=== PATIENT | female | born 1945 | race Hispanic/Latino ===

== ENCOUNTER 2018-08-23 03:08 | Inpatient (IN) | payer MEDICARE ==
--- NOTE | 2018-08-23 04:08 | Emergency Department Report ---
HPI - General Chief Complaint: Dyspnea/Respdistress Time Seen by Provider: 08/23/18 03:47 - HPI HPI: Room 17 The patient is a 73-year-old female presenting with a chief complaint of shortness of breath and chest tightness. The patient states she was sent to the residential facility but has been without her oxygen for the past 2-3 days. Patient states she's had intermittent shortness of breath associated with chest tightness and nausea without vomiting and diaphoresis. The patient states she awakened this evening gasping for air and her roommate called 911. Patient admits to occasional cough that is nonproductive. Patient denies history of fe tatum. Patient currently gets her chest tightness and score of 4/10. Of note the patient is also relatively low after being diagnosed with PVCs approximately 2-3 months ago. 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 Chronic pain - Surgical History Hx Breast Surgery: Yes (R mastectomy 2003, cancer) Additional Surgical History: Hysterectomy, Right foot surgery - Family History Family history: no significant - Social History Smoking Status: Former Smoker (none since 2002) Substance Use Type: None - Medications Home Medications: Home Medications Medication Instructions Recorded Confirmed Last Taken Type Buspirone HCl [busPIRone] 15 mg PO TID 09/16/14 08/18/18 02/18/16 History Levothyroxine [Synthroid] 100 mcg PO DAILY 09/16/14 08/18/18 02/20/16 08:00 History Tizanidine HCl 4 mg PO Q8H PRN 02/20/16 08/18/18 02/20/16 08:00 History Gabapentin [Neurontin] 400 mg PO TID 08/18/18 08/18/18 Unknown History Metformin HCl [Glucophage] 1,000 mg PO BIDWM 08/18/18 08/18/18 Unknown History Oxybutynin Xl [Ditropan Xl] 5 mg PO QDAY 08/18/18 08/18/18 Unknown History Venlafaxine Xr [Effexor Xr] 225 mg PO QDAY 08/18/18 08/18/18 Unknown History ED Review of Systems ROS: Stated complaint: SOB Other details as noted in HPI Constitutional: denies: fever Eyes: denies: eye pain ENT: denies: throat pain Respiratory: shortness of breath Cardiovascular: chest pain (tightness) Endocrine: no symptoms reported Gastrointestinal: nausea Genitourinary: denies: dysuria Musculoskeletal: back pain (chronic) Neurological: denies: headache Physical Exam - Physical Exam Vital Signs: Vital Signs 08/23/18 08/23/18 08/23/18 03:36 03:46 03:47 Temperature 97.9 F 97.9 F Pulse Rate 88 88 Respiratory 18 18 18 Rate Blood Pressure 159/67 Blood Pressure 136/73 [Left] O2 Sat by Pulse 95 96 Oximetry Physical Exam: GENERAL: The patient is well-developed well-nourished female lying on stretcher not appearing to be in acute distress. [] HEENT: Normocephalic. Atraumatic. Extraocular motions are intact. Patient has moist mucous membranes. NECK: Supple. Trachea midline CHEST/LUNGS: Clear to auscultation. There is no respiratory distress noted. HEART/CARDIOVASCULAR: Regular. There is no tachycardia. There is no gallop rub or murmur. ABDOMEN: Abdomen is soft, nontender. Patient has normal bowel sounds. There is no abdominal distention. SKIN: There is no rash. There is no diaphoresis. NEURO: The patient is awake, alert, and oriented. The patient is cooperative. The patient has normal speech MUSCULOSKELETAL: There is no evidence of acute injury. ED Course Vital Signs 08/23/18 08/23/18 08/23/18 03:36 03:46 03:47 Temperature 97.9 F 97.9 F Pulse Rate 88 88 Respiratory 18 18 18 Rate Blood Pressure 159/67 Blood Pressure 136/73 [Left] O2 Sat by Pulse 95 96 Oximetry ED Medical Decision Making - Lab Data Result diagrams: 08/23/18 04:37 08/23/18 04:37 Laboratory Tests 08/23/18 08/23/18 08/23/18 04:37 04:37 04:37 WBC 3.6 L RBC 3.68 Hgb 11.2 Hct 33.8 MCV 92 MCH 31 MCHC 33 RDW 18.9 H Plt Count 149 Lymph % (Auto) 15.0 [place] % (Auto) 9.8 H Eos % (Auto) 2.7 Baso % (Auto) 0.7 Lymph # 0.5 L [place] # 0.4 Eos # 0.1 Baso # 0.0 Seg Neutrophils % 71.8 H Seg Neutrophils # 2.6 PT 14.7 INR 1.08 APTT 31.3 Sodium 141 Potassium 3.9 Chloride 100.0 Carbon Dioxide 31 H Anion Gap 14 BUN 10 Creatinine 0.6 L Estimated GFR > 60 BUN/Creatinine Ratio 17 Glucose 237 H Calcium 8.7 Total Creatine Kinase 48 CK-MB (CK-2) 1.4 CK-MB (CK-2) Rel Index 2.9 Troponin T NT-Pro-B Natriuret Pep 08/23/18 04:37 WBC RBC Hgb Hct MCV MCH MCHC RDW Plt Count Lymph % (Auto) [place] % (Auto) Eos % (Auto) Baso % (Auto) Lymph # [place] # Eos # Baso # Seg Neutrophils % Seg Neutrophils # PT INR APTT Sodium Potassium Chloride Carbon Dioxide Anion Gap BUN Creatinine Estimated GFR BUN/Creatinine Ratio Glucose Calcium Total Creatine Kinase CK-MB (CK-2) CK-MB (CK-2) Rel Index Troponin T < 0.010 NT-Pro-B Natriuret Pep 66.83 - EKG Data -: EKG Interpreted by Me EKG shows normal: sinus rhythm Rate: normal - EKG Data When compared to previous EKG there are: previous EKG unavailable Interpretation: nonspecific ST-T wave maria esther (T-wave inversions in leads 3 and aVF), other (PVC) - Radiology Data Radiology results: report reviewed (chest x-ray), image reviewed (chest x-ray) interpreted by me: Chest x-ray- no pneumothorax. Haziness in the right costophrenic angle possible pleural effusion. Left lower lobe atelectasis Chest x-ray (read by radiologist)-the heart size is normal. There are bilateral pulmonary nodules which roughly correspond to lesion seen on prior CT. There are no infiltrates, effusions or pneumothoraces. - Differential Diagnosis COPD exacerbation, ACS, pericarditis, GERD Critical care attestation.: If time is entered above; I have spent that time in minutes in the direct care of this critically ill patient, excluding procedure time. ED Disposition Clinical Impression: Chest tightness, Shortness of breath Disposition: OP ADMIT IP TO THIS HOSP Is pt being admited?: Yes Does the pt Need Aspirin: No Condition: Fair Time of Disposition: 05:56 (hospitalist notified (Dr. Naima Davis))
[2018-08-23] MEDS ORDERED: NITRO-BID 2% TP ONE (04:11)
[2018-08-23] MEDS ORDERED: SUBLIMAZE IV ONE (04:11)
[2018-08-23] MEDS ORDERED: ZOFRAN IV ONE (04:11)
[2018-08-23 04:47] LABS: Basophils % (Auto) 0.7 % (0.0-1.8); Eosinophils # (Auto) 0.1 K/mm3 (0.0-0.4); Eosinophils % (Auto) 2.7 % (0.0-4.3); Hematocrit 33.8 % (30.3-42.9); Hemoglobin 11.2 gm/dl (10.1-14.3); Lymphocytes # (Auto) 0.5 K/mm3 (1.2-5.4); Mean Corpuscular HGB Conc 33 % (30-34); Mean Corpuscular Volume 92 fl (79-97); Monocytes # (Auto) 0.4 K/mm3 (0.0-0.8); Monocytes % (Auto) 9.8 % (0.0-7.3); Platelet Count 149 K/mm3 (140-440); Red Blood Count 3.68 M/mm3 (3.65-5.03); Red Cell Distribution Width 18.9 % (13.2-15.2)
--- NOTE | 2018-08-23 04:47 | XRay Report ---
PROCEDURE: XR CHEST 1V AP TECHNIQUE: Chest radiograph single view. HISTORY: chest tightness, shortness of breath COMPARISONS: CT 12/21/2015 . FINDINGS: Heart: Normal. Mediastinum/Vessels: Normal. Lungs/Pleural space: There are bilateral pulmonary nodules which roughly correspond to lesions seen on prior CT. There are no infiltrates, effusions or pneumothoraces.. Bony thorax: No acute osseous abnormality. Life support devices: None. IMPRESSION: The heart size is normal.. There are bilateral pulmonary nodules which roughly correspond to lesions seen on prior CT. There are no infiltrates, effusions or pneumothoraces.. This document is electronically signed by Dillan Monterroso MD., August 23 2018 04:44:55 AM ET
[2018-08-23 04:57] LABS: INR 1.08 (0.87-1.13)
[2018-08-23 04:58] LABS: Partial Thromboplastin Time 31.3 Sec. (24.2-36.6)
[2018-08-23 05:20] LABS: Creatine Kinase MB 1.4 ng/mL (0.0-4.0)
[2018-08-23 05:21] LABS: BUN/Creatinine Ratio 17; Blood Urea Nitrogen 10 mg/dL (7-17); Calcium 8.7 mg/dL (8.4-10.2); Hemolysis Index 10
[2018-08-23] MEDS ORDERED: ZOFRAN IV PRN (05:33)
[2018-08-23] MEDS ORDERED: SODIUM CHLORIDE FLUSH SYRINGE 10 ML IV PRN (05:33)
[2018-08-23] MEDS ORDERED: MORPHINE IV PRN (05:33)
[2018-08-23] MEDS ORDERED: TYLENOL PO PRN (05:33)
[2018-08-23] MEDS ORDERED: D50W (25GM) Syringe IV PRN (05:33)
--- NOTE | 2018-08-23 05:42 | History and Physical Report ---
History of Present Illness Date of examination: 08/23/18 History of present illness: 73-year-old woman and a history of diabetes, COPD on home oxygen, hypothyroidism, GERD, history of metastatic breast cancer(lungs, liver, bones), chronic pain comes emergency room with complaints of chest tightness that started today. Tightness is located in the epigastric area, intermittently, unable to say how long it lasts for, intensity 5/10, no radiation, took a 30 milligram morphine sulfate at home which helped with the pain. Admits to shortness of breath, no nausea vomiting, diaphoresis or palpitation Review of systems Constitutional: no weight loss, chills, fever Ears, eyes, nose, mouth and throat: no nasal congestion, no nasal discharge, no sinus pressure, no vision change, no red eye. Neck: No neck pain or rigidity. Cardiovascular: no palpitations Respiratory: no cough, +shortness of breath Gastrointestinal: no hematochezia, abdominal pain Genitourinary : no frequency , no hematuria Musculoskeletal: no joint swelling or muscle ache Integumentary: no rash, no pruritis Neurological: no parathesias, no focal weakness Endocrine: no cold or heat intolerance, no polyuria or polydipsia Hematologic/Lymphatic: no easy bruising, no easy bleeding, no gland swelling Allergic/Immunologic: no urticaria, no angioedema. PAST MEDICAL HISTORY: diabetes, COPD on home oxygen, hypothyroidism, GERD, history of metastatic breast cancer, chronic pain PAST SURGICAL HISTORY: Hip, right foot, hysterectomy SOCIAL HISTORY: Denies alcohol, drugs, tobacco FAMILY HISTORY: Hypertension Medications and Allergies Allergies Allergy/AdvReac Type Severity Reaction Status Date / Time Penicillins Allergy Hives Verified 09/16/14 21:38 pregabalin [From Lyrica] Allergy Itching Verified 09/16/14 21:39 MOLD/MILDEW Allergy Swelling Uncoded 10/10/14 13:09 Home Medications Medication Instructions Recorded Confirmed Last Taken Type Buspirone HCl [busPIRone] 15 mg PO TID 09/16/14 08/18/18 02/18/16 History Levothyroxine [Synthroid] 100 mcg PO DAILY 09/16/14 08/18/18 02/20/16 08:00 History Tizanidine HCl 4 mg PO Q8H PRN 02/20/16 08/18/18 02/20/16 08:00 History Gabapentin [Neurontin] 400 mg PO TID 08/18/18 08/18/18 Unknown History Metformin HCl [Glucophage] 1,000 mg PO BIDWM 08/18/18 08/18/18 Unknown History Oxybutynin Xl [Ditropan Xl] 5 mg PO QDAY 08/18/18 08/18/18 Unknown History Venlafaxine Xr [Effexor Xr] 225 mg PO QDAY 08/18/18 08/18/18 Unknown History Exam - Physical Exam Narrative exam: General Apperance: The patient lying in bed, breathing comfortable HEENT: Normocephalic, atraumatic. Pupils equally round and reactive to light, EOMI, no sclericterus or JVD or thyromegaly or nodule. , no carotid bruit, mucous membranes moist, no exudate or erythema Heart: S1-S2, regular is rhythm Lungs: Clear to auscultation bilaterally, breathing comfortable Abdomen: Positive bowel sounds, soft, nontender, nondistended, no organomegaly Extremities: No edema cyanosis clubbing Skin: no rash, nodule, warm and dry Neuro: cranial nerves 2-12 intact, speech is fluent, motor/sensory intact - Constitutional Vitals: Temp Pulse Resp BP Pulse Ox 97.9 F 88 18 136/73 96 08/23/18 03:46 08/23/18 03:46 08/23/18 03:47 08/23/18 03:46 08/23/18 03:47 Results - Labs CBC & Chem 7: 08/23/18 04:37 08/23/18 04:37 Labs: Abnormal lab results 08/23/18 08/23/18 Range/Units 04:37 04:37 WBC 3.6 L (4.5-11.0) K/mm3 RDW 18.9 H (13.2-15.2) % [place] % (Auto) 9.8 H (0.0-7.3) % Lymph # 0.5 L (1.2-5.4) K/mm3 Seg Neutrophils % 71.8 H (40.0-70.0) % Carbon Dioxide 31 H (22-30) mmol/L Creatinine 0.6 L (0.7-1.2) mg/dL Glucose 237 H (65-100) mg/dL - Imaging and Cardiology EKG: image reviewed Chest x-ray: image reviewed Assessment and Plan Assessment Chest pain diabetes COPD on home oxygen hypothyroidism GERD history of metastatic breast cancer chronic pain Plan Admit to medicine Check cardiac enzymes, stress test Check fingersticks, initiate insulin sliding scale IV morphine, DVT prophylaxis f/u med rec
[2018-08-23 08:15] LABS: Creatine Kinase MB 1.7 ng/mL (0.0-4.0)
[2018-08-23] MEDS ORDERED: HumaLOG SUB-Q ONE (09:03)
[2018-08-23] MEDS: HumaLOG SUB-Q SCH ×3 (09:09→17:58)
[2018-08-23] MEDS ORDERED: LOVENOX SUB-Q SCH (10:00)
[2018-08-23] MEDS: SODIUM CHLORIDE FLUSH SYRINGE 10 ML IV SCH (10:07)
[2018-08-23] MEDS ORDERED: BABY ASPIRIN ONE (10:09)
[2018-08-23] MEDS: BABY ASPIRIN PO SCH (10:09)
[2018-08-23] MEDS ORDERED: LOVENOX SUB-Q ONE (10:10)
[2018-08-23] MEDS ORDERED: ZANAFLEX PO PRN (12:29)
[2018-08-23] MEDS ORDERED: MORPHINE SULFATE 60 MG PO SCH (12:30)
[2018-08-23] MEDS ORDERED: NON-FORMULARY (Metformin Hcl [Glucophage] 1,000 MG) PO SCH (12:30)
[2018-08-23] MEDS ORDERED: DILAUDID PO PRN (12:37)
[2018-08-23] MEDS: NEURONTIN PO SCH ×2 (13:33→20:58)
[2018-08-23] MEDS: MS CONTIN ER PO SCH ×2 (13:34→13:49)
[2018-08-23] MEDS ORDERED: NON-FORMULARY (Buspirone Hcl [Buspirone] 15 MG) PO SCH (14:00)
[2018-08-23] MEDS ORDERED: NEURONTIN PO SCH (14:00)
--- NOTE | 2018-08-23 16:11 | Event Note ---
Date: 08/23/18 The patient's self reported that she took her own medications while she was in the room. She took 1 mg of Ativan, and 30 mg of immediate release morphine. She states that she was in too much pain and having to severe headache and could not wait for the nurse administer meds to her. I personally spoke to the charge nurse [place], informed her of what happened. She sequentially to the patient's room educated the patient and confiscated any medications in the room. I also counseled the patient and explained that this is not safe to take her own medications while in hospital Preventative health counseling was performed greater than 18 minutes was spent
[2018-08-23] MEDS: GLUCOPHAGE PO SCH (17:58)
[2018-08-23] MEDS: BUSPAR PO SCH ×2 (17:58→20:58)
[2018-08-23] MEDS: XARELTO PO SCH (20:58)
[2018-08-24] MEDS: HumaLOG SUB-Q SCH ×5 (00:02→22:31)
[2018-08-24] MEDS: SODIUM CHLORIDE FLUSH SYRINGE 10 ML IV SCH ×3 (00:02→21:12)
[2018-08-24] MEDS: SYNTHROID PO SCH (06:18)
[2018-08-24] MEDS: BUSPAR PO SCH ×3 (08:00→21:10)
[2018-08-24] MEDS: NEURONTIN PO SCH ×3 (08:00→21:10)
[2018-08-24] MEDS: GLUCOPHAGE PO SCH ×2 (08:00→18:58)
[2018-08-24] MEDS ORDERED: LEXISCAN IV ONE ×2 (10:02→11:00)
[2018-08-24] MEDS ORDERED: ZOFRAN ONE (10:09)
[2018-08-24] MEDS: XARELTO PO SCH (13:53)
[2018-08-24] MEDS: HCTZ PO SCH (13:53)
[2018-08-24] MEDS: EFFEXOR XR PO SCH (13:54)
[2018-08-24] MEDS: DITROPAN XL PO SCH (13:58)
[2018-08-24] MEDS: MS CONTIN ER PO SCH ×3 (13:58→21:11)
[2018-08-24] MEDS: BABY ASPIRIN PO SCH (14:00)
--- NOTE | 2018-08-24 14:03 | Progress Note ---
Assessment and Plan Assessment and plan: Chest pain Stress test is negative GERD with Heartburn Patient states that he was on ranitidine at home. Start Pepcid chronic resp failure on home Oxygen but ran out mental health case manager consult Diabetes mellitus type 2 Fingerstick before meals and at bedtime Hypertension Monitor BP Hypothyroidism Continue meds Breast cancer with metastases . Failure to thrive parking lot manager working on placement. History Interval history: Chest pain Heartburn asking for placement Hospitalist Physical - Physical exam Narrative exam: Gen: Not in acute distress, obese HEENT: Normocephalic, atraumatic Neck: supple, no JVD Heart: S1 and S2 reg, no murmurs, rubs or gallop Lungs: Clear, no crackles Abd: soft, non tender, non distended, normal BS Ext: No edema, no clubbing, no cyanosis, Neuro: AAO x 3, no focal signs, moves all ext Psych:Normal mood - Constitutional Vitals: Temp Pulse Resp BP Pulse Ox 98.3 F 78 18 152/89 96 08/24/18 07:32 08/24/18 07:32 08/24/18 07:32 08/24/18 10:11 08/24/18 07:32 Results - Labs CBC & Chem 7: 08/23/18 04:37 08/23/18 04:37 Labs: Laboratory Last Values WBC 3.6 K/mm3 (4.5-11.0) L 08/23/18 04:37 RBC 3.68 M/mm3 (3.65-5.03) 08/23/18 04:37 Hgb 11.2 gm/dl (10.1-14.3) 08/23/18 04:37 Hct 33.8 % (30.3-42.9) 08/23/18 04:37 MCV 92 fl (79-97) 08/23/18 04:37 MCH 31 pg (28-32) 08/23/18 04:37 MCHC 33 % (30-34) 08/23/18 04:37 RDW 18.9 % (13.2-15.2) H 08/23/18 04:37 Plt Count 149 K/mm3 (140-440) 08/23/18 04:37 Lymph % (Auto) 15.0 % (13.4-35.0) 08/23/18 04:37 [place] % (Auto) 9.8 % (0.0-7.3) H 08/23/18 04:37 Eos % (Auto) 2.7 % (0.0-4.3) 08/23/18 04:37 Baso % (Auto) 0.7 % (0.0-1.8) 08/23/18 04:37 Lymph # 0.5 K/mm3 (1.2-5.4) L 08/23/18 04:37 [place] # 0.4 K/mm3 (0.0-0.8) 08/23/18 04:37 Eos # 0.1 K/mm3 (0.0-0.4) 08/23/18 04:37 Baso # 0.0 K/mm3 (0.0-0.1) 08/23/18 04:37 Seg Neutrophils % 71.8 % (40.0-70.0) H 08/23/18 04:37 Seg Neutrophils # 2.6 K/mm3 (1.8-7.7) 08/23/18 04:37 PT 14.7 Sec. (12.2-14.9) 08/23/18 04:37 INR 1.08 (0.87-1.13) 08/23/18 04:37 APTT 31.3 Sec. (24.2-36.6) 08/23/18 04:37 Sodium 141 mmol/L (137-145) 08/23/18 04:37 Potassium 3.9 mmol/L (3.6-5.0) 08/23/18 04:37 Chloride 100.0 mmol/L (98-107) 08/23/18 04:37 Carbon Dioxide 31 mmol/L (22-30) H 08/23/18 04:37 Anion Gap 14 mmol/L 08/23/18 04:37 BUN 10 mg/dL (7-17) 08/23/18 04:37 Creatinine 0.6 mg/dL (0.7-1.2) L 08/23/18 04:37 Estimated GFR > 60 ml/min 08/23/18 04:37 BUN/Creatinine Ratio 17 % 08/23/18 04:37 Glucose 237 mg/dL (65-100) H 08/23/18 04:37 POC Glucose 270 (70-105) H 08/24/18 12:54 Calcium 8.7 mg/dL (8.4-10.2) 08/23/18 04:37 Total Creatine Kinase 53 units/L (30-135) 08/23/18 07:37 CK-MB (CK-2) 1.7 ng/mL (0.0-4.0) 08/23/18 07:37 CK-MB (CK-2) Rel Index 3.2 (0-4) 08/23/18 07:37 Troponin T < 0.010 ng/mL (0.00-0.029) 08/23/18 14:58 NT-Pro-B Natriuret Pep 66.83 pg/mL (0-900) 08/23/18 04:37 TSH 5.180 mlU/mL (0.270-4.200) H 08/23/18 14:58 Free T4 1.21 ng/dL (0.76-1.46) 08/23/18 15:12 Thyroxine (T4) 7.6 ug/dL (4.0-12.0) 08/23/18 15:13 Active Medications - Current Medications Current Medications: Generic Name Dose Route Start Last Admin Trade Name Freq PRN Reason Stop Dose Admin Acetaminophen 650 mg 08/23/18 05:33 08/23/18 13:52 Tylenol PO 650 mg Q4H PRN Administration Pain MILD(1-3)/Fever >100.5/CATHERINE Aspirin 81 mg 08/23/18 10:00 08/23/18 10:09 Baby Aspirin PO 81 mg QDAY [facility] Administration Buspirone HCl 15 mg 08/23/18 14:30 08/24/18 08:00 Buspar PO Not Given TID [facility] Dextrose 50 ml 08/23/18 05:33 D50w (25gm) Syringe IV PRN PRN Hypoglycemia Gabapentin 600 mg 08/23/18 14:00 08/24/18 08:00 Neurontin PO Not Given TID [facility] Hydrochlorothiazide 25 mg 08/24/18 10:00 Hctz PO QDAY [facility] Hydromorphone HCl 4 mg 08/23/18 12:37 Dilaudid PO Q6H PRN Pain , Severe (7-10) Insulin Human Lispro 0 unit 08/23/18 07:30 08/24/18 08:16 Humalog SUB-Q Not Given ACHS [facility] Protocol Levothyroxine Sodium 100 mcg 08/24/18 06:00 08/24/18 06:18 Synthroid PO Not Given 0600 [facility] Lorazepam 1 mg 08/23/18 12:29 Ativan PO BID PRN Anxiety Metformin HCl 1,000 mg 08/23/18 17:00 08/24/18 08:00 Glucophage PO Not Given BIDDIAB [facility] Morphine Sulfate 60 mg 08/23/18 22:00 08/24/18 00:00 Ms Contin Er PO 60 mg Q12HR [facility] Administration Ondansetron HCl 4 mg 08/23/18 05:33 08/24/18 10:11 Zofran IV 4 mg Q8H PRN Administration Nausea And Vomiting Oxybutynin Chloride 5 mg 08/24/18 10:00 Ditropan Xl PO QDAY [facility] Rivaroxaban 15 mg 08/23/18 20:00 08/23/18 20:58 Xarelto PO 15 mg DAILY [facility] Administration Protocol Sodium Chloride 10 ml 08/23/18 10:00 08/24/18 00:02 Sodium Chloride Flush Syringe 10 Ml IV 10 ml BID [facility] Administration Sodium Chloride 10 ml 08/23/18 05:33 Sodium Chloride Flush Syringe 10 Ml IV PRN PRN LINE FLUSH Tizanidine HCl 4 mg 08/23/18 12:29 Zanaflex PO Q8H PRN Muscle Spasm Venlafaxine HCl 225 mg 08/24/18 10:00 Effexor Xr PO QDAY [facility]
--- NOTE | 2018-08-24 14:49 | Treadmill Report ---
THALLIUM STRESS TEST LEFT VENTRICLE: Left ventricular chamber size is within normal spread. Perfusion study demonstrates homogeneous uptake of the tracer in all segments, no significant defects identified. Gated analysis demonstrates normal left ventricular systolic function, ejection fraction 67%. CONCLUSION: Normal myocardial perfusion study. JOB# [id number] CA/NTS
[2018-08-24] MEDS: PEPCID PO SCH ×2 (18:59→21:11)
[2018-08-24] MEDS ORDERED: CAPECITABINE 1500 MG PO SCH (22:00)
[2018-08-24] MEDS ORDERED: ALUM-MAG HYDROX-SIMETH 200-200-20MG/5ML PO PRN (22:23)
[2018-08-24] MEDS: ATIVAN PO PRN (23:56)
[2018-08-25] MEDS: SYNTHROID PO SCH (06:38)
[2018-08-25] MEDS: HumaLOG SUB-Q SCH ×3 (08:28→17:22)
[2018-08-25] MEDS: EFFEXOR XR PO SCH (09:28)
[2018-08-25] MEDS: GLUCOPHAGE PO SCH ×2 (09:28→17:22)
[2018-08-25] MEDS: PEPCID PO SCH ×2 (09:28→23:08)
[2018-08-25] MEDS: MS CONTIN ER PO SCH ×2 (09:29→23:09)
[2018-08-25] MEDS: BABY ASPIRIN PO SCH (09:29)
[2018-08-25] MEDS: BUSPAR PO SCH ×2 (09:29→13:31)
[2018-08-25] MEDS: HCTZ PO SCH (09:29)
[2018-08-25] MEDS: DITROPAN XL PO SCH (09:29)
[2018-08-25] MEDS: NEURONTIN PO SCH ×3 (09:29→20:00)
[2018-08-25] MEDS: XARELTO PO SCH (09:29)
[2018-08-25] MEDS: SODIUM CHLORIDE FLUSH SYRINGE 10 ML IV SCH ×2 (09:30→23:12)
--- NOTE | 2018-08-25 18:55 | Progress Note ---
Assessment and Plan Assessment and plan: Chest pain Stress test is negative GERD with Heartburn Patient states that he was on ranitidine at home. Start Pepcid chronic resp failure on home Oxygen but ran out cyanide case hardener consult Diabetes mellitus type 2 Fingerstick before meals and at bedtime Hypertension Monitor BP Hypothyroidism Continue meds Breast cancer with metastases . Failure to thrive surgical territory manager working on placement. patient medically stable for discharge History Interval history: Chest pain Heartburn asking for placement Hospitalist Physical - Physical exam Narrative exam: Gen: Not in acute distress, obese HEENT: Normocephalic, atraumatic Neck: supple, no JVD Heart: S1 and S2 reg, no murmurs, rubs or gallop Lungs: Clear, no crackles Abd: soft, non tender, non distended, normal BS Ext: No edema, no clubbing, no cyanosis, Neuro: AAO x 3, no focal signs, moves all ext Psych:Normal mood - Constitutional Vitals: Temp Pulse Resp BP Pulse Ox 97.9 F 82 18 135/79 94 08/25/18 12:53 08/25/18 12:53 08/25/18 12:53 08/25/18 12:53 08/25/18 12:53 Results - Labs CBC & Chem 7: 08/23/18 04:37 08/23/18 04:37 Labs: Laboratory Last Values WBC 3.6 K/mm3 (4.5-11.0) L 08/23/18 04:37 RBC 3.68 M/mm3 (3.65-5.03) 08/23/18 04:37 Hgb 11.2 gm/dl (10.1-14.3) 08/23/18 04:37 Hct 33.8 % (30.3-42.9) 08/23/18 04:37 MCV 92 fl (79-97) 08/23/18 04:37 MCH 31 pg (28-32) 08/23/18 04:37 MCHC 33 % (30-34) 08/23/18 04:37 RDW 18.9 % (13.2-15.2) H 08/23/18 04:37 Plt Count 149 K/mm3 (140-440) 08/23/18 04:37 Lymph % (Auto) 15.0 % (13.4-35.0) 08/23/18 04:37 [place] % (Auto) 9.8 % (0.0-7.3) H 08/23/18 04:37 Eos % (Auto) 2.7 % (0.0-4.3) 08/23/18 04:37 Baso % (Auto) 0.7 % (0.0-1.8) 08/23/18 04:37 Lymph # 0.5 K/mm3 (1.2-5.4) L 08/23/18 04:37 [place] # 0.4 K/mm3 (0.0-0.8) 08/23/18 04:37 Eos # 0.1 K/mm3 (0.0-0.4) 08/23/18 04:37 Baso # 0.0 K/mm3 (0.0-0.1) 08/23/18 04:37 Seg Neutrophils % 71.8 % (40.0-70.0) H 08/23/18 04:37 Seg Neutrophils # 2.6 K/mm3 (1.8-7.7) 08/23/18 04:37 PT 14.7 Sec. (12.2-14.9) 08/23/18 04:37 INR 1.08 (0.87-1.13) 08/23/18 04:37 APTT 31.3 Sec. (24.2-36.6) 08/23/18 04:37 Sodium 141 mmol/L (137-145) 08/23/18 04:37 Potassium 3.9 mmol/L (3.6-5.0) 08/23/18 04:37 Chloride 100.0 mmol/L (98-107) 08/23/18 04:37 Carbon Dioxide 31 mmol/L (22-30) H 08/23/18 04:37 Anion Gap 14 mmol/L 08/23/18 04:37 BUN 10 mg/dL (7-17) 08/23/18 04:37 Creatinine 0.6 mg/dL (0.7-1.2) L 08/23/18 04:37 Estimated GFR > 60 ml/min 08/23/18 04:37 BUN/Creatinine Ratio 17 % 08/23/18 04:37 Glucose 237 mg/dL (65-100) H 08/23/18 04:37 POC Glucose 162 (70-105) H 08/25/18 17:09 Calcium 8.7 mg/dL (8.4-10.2) 08/23/18 04:37 Total Creatine Kinase 53 units/L (30-135) 08/23/18 07:37 CK-MB (CK-2) 1.7 ng/mL (0.0-4.0) 08/23/18 07:37 CK-MB (CK-2) Rel Index 3.2 (0-4) 08/23/18 07:37 Troponin T < 0.010 ng/mL (0.00-0.029) 08/23/18 14:58 NT-Pro-B Natriuret Pep 66.83 pg/mL (0-900) 08/23/18 04:37 TSH 5.180 mlU/mL (0.270-4.200) H 08/23/18 14:58 Free T4 1.21 ng/dL (0.76-1.46) 08/23/18 15:12 Thyroxine (T4) 7.6 ug/dL (4.0-12.0) 08/23/18 15:13 Active Medications - Current Medications Current Medications: Generic Name Dose Route Start Last Admin Trade Name Freq PRN Reason Stop Dose Admin Acetaminophen 650 mg 08/23/18 05:33 08/23/18 13:52 Tylenol PO 650 mg Q4H PRN Administration Pain MILD(1-3)/Fever >100.5/CATHERINE Al Hydrox/Mg Hydrox/Simethicone 30 ml 08/24/18 22:23 08/24/18 23:56 Alum-Mag Hydrox-Simeth [id number]/5ml PO 30 ml Q4H PRN Administration Indigestion Aspirin 81 mg 08/23/18 10:00 08/25/18 09:29 Baby Aspirin PO 81 mg QDAY [facility] Administration Buspirone HCl 15 mg 08/23/18 14:30 08/25/18 13:31 Buspar PO 15 mg TID ZAHIRA Administration Dextrose 50 ml 08/23/18 05:33 D50w (25gm) Syringe IV PRN PRN Hypoglycemia Famotidine 20 mg 08/24/18 15:00 08/25/18 09:28 Pepcid PO 20 mg BID [facility]AHIRA Administration Gabapentin 600 mg 08/23/18 14:00 08/25/18 15:29 Neurontin PO 600 mg TID [facility]AHIRA Administration Hydrochlorothiazide 25 mg 08/24/18 10:00 08/25/18 09:29 Hctz PO 25 mg QDAY [facility] Administration Hydromorphone HCl 4 mg 08/23/18 12:37 Dilaudid PO Q6H PRN Pain , Severe (7-10) Insulin Human Lispro 0 unit 08/23/18 07:30 08/25/18 17:22 Humalog SUB-Q Not Given ACHS [facility] Protocol Levothyroxine Sodium 100 mcg 08/24/18 06:00 08/25/18 06:38 Synthroid PO 100 mcg 0600 [facility] Administration Lorazepam 1 mg 08/23/18 12:29 08/24/18 23:56 Ativan PO 1 mg BID PRN Administration Anxiety Metformin HCl 1,000 mg 08/23/18 17:00 08/25/18 17:22 Glucophage PO 1,000 mg BIDDIAB [facility] Administration Miscellaneous Medication 1,500 mg 08/24/18 22:00 Capecitabine [Xeloda] PO BID [facility] Morphine Sulfate 60 mg 08/23/18 22:00 08/25/18 09:29 Ms Contin Er PO 60 mg Q12HR [facility] Administration Ondansetron HCl 4 mg 08/23/18 05:33 08/24/18 10:11 Zofran IV 4 mg Q8H PRN Administration Nausea And Vomiting Oxybutynin Chloride 5 mg 08/24/18 10:00 08/25/18 09:29 Ditropan Xl PO 5 mg QDAY [facility] Administration Rivaroxaban 15 mg 08/23/18 20:00 08/25/18 09:29 Xarelto PO 15 mg DAILY [facility] Administration Protocol Sodium Chloride 10 ml 08/23/18 10:00 08/25/18 09:30 Sodium Chloride Flush Syringe 10 Ml IV 10 ml BID [facility] Administration Sodium Chloride 10 ml 08/23/18 05:33 Sodium Chloride Flush Syringe 10 Ml IV PRN PRN LINE FLUSH Tizanidine HCl 4 mg 08/23/18 12:29 08/24/18 13:58 Zanaflex PO 4 mg Q8H PRN Administration Muscle Spasm Venlafaxine HCl 225 mg 08/24/18 10:00 08/25/18 09:28 Effexor Xr PO 225 mg QDAY [facility] Administration
[2018-08-25] MEDS: ATIVAN PO PRN (23:08)
[2018-08-26] MEDS: HumaLOG SUB-Q SCH ×4 (05:29→16:54)
[2018-08-26] MEDS: BUSPAR PO SCH ×3 (06:03→13:08)
[2018-08-26] MEDS: SYNTHROID PO SCH (06:28)
[2018-08-26] MEDS: GLUCOPHAGE PO SCH ×2 (07:34→16:55)
[2018-08-26] MEDS: NEURONTIN PO SCH ×2 (07:36→13:08)
[2018-08-26] MEDS: BABY ASPIRIN PO SCH (09:04)
[2018-08-26] MEDS: DITROPAN XL PO SCH (09:04)
[2018-08-26] MEDS: MS CONTIN ER PO SCH (09:05)
[2018-08-26] MEDS: EFFEXOR XR PO SCH (09:06)
[2018-08-26] MEDS: HCTZ PO SCH (09:06)
[2018-08-26] MEDS: PEPCID PO SCH (09:06)
[2018-08-26] MEDS: XARELTO PO SCH (09:07)
[2018-08-26] MEDS: SODIUM CHLORIDE FLUSH SYRINGE 10 ML IV SCH (09:08)
--- NOTE | 2018-08-26 14:55 | Discharge Summary ---
Providers - Providers Date of Admission: 08/23/18 05:33 Date of discharge: 08/26/18 Attending physician: HALLEY FREDERICK 08/24/18 11:35 Occupational Therapy Evaluate and Treat [CONS] Routine Comment: Reason For Exam: WEAKNESS Physical Therapy Evaluation and Treat [CONS] Routine Comment: Reason For Exam: WEAKNESS Primary care physician: SHERICE BALDERAS Hospitalization Condition: Fair Hospital course: Patient is 73 yo woman and a history of diabetes, COPD on home oxygen, hypothyroidism, GERD, history of metastatic breast cancer(lungs, liver, bones), chronic pain comes emergency room with complaints of chest tightness and shortness of breath. She was seen and evaluated in Emergency Department. Initial troponin was normal. She was given Aspirin and admitted to rule out acute coronary syndrome. Stress test was done was negative. Patient needed placement, was discussed with top case assembler she was subsequently discharged to personal [facility]dc on 08/26/2018. Total time spent on discharge, 31 minutes. Disposition: [id number] HOME UNDER HOME HLTH - Discharge Diagnoses (1) GERD (gastroesophageal reflux disease) Status: Acute (2) Chest tightness Status: Acute (3) Chronic respiratory failure Status: Acute (4) Breast cancer metastasized to lung Status: Acute (5) Breast cancer metastasized to liver Status: Acute Core Measure Documentation - Palliative Care Palliative Care/ Comfort Measures: Not Applicable - Core Measures Any of the following diagnoses?: none Exam - Constitutional Vitals: Temp Pulse Resp BP Pulse Ox 98.3 F 80 20 127/70 95 08/26/18 07:16 08/26/18 10:00 08/26/18 10:00 08/26/18 07:16 08/26/18 10:00 Plan Activity: advance as tolerated Diet: low fat, low cholesterol, low salt Special Instructions: home oxygen via, home health RN Additional Instructions: 1.Follow up with PCP in 1 week. 2.Continue home Oxygen continuous. Follow up with: SHERICE BALDERAS MD [Primary Care Provider] - 7 Days
[2018-08-26 15:30] VITALS: BP 147/74
== END 2018-08-26 17:50 | disposition home health service (06) | DRG 392 ==
LOC: SUATTDRO 03:08 → ED 03:08 → 4A 05:33 → 2B-ACE 08-25 16:47
PROVIDERS: ADMIT Internal Medicine; ATTEND Internal Medicine
DX: K21.9 Gastro-esophageal reflux disease without esophagitis (principal); J96.10 Chronic respiratory failure, unspecified whether with hypoxia or hypercapnia; E11.9 Type 2 diabetes mellitus without complications; I10 Essential (primary) hypertension; E03.9 Hypothyroidism, unspecified; J44.9 Chronic obstructive pulmonary disease, unspecified; G89.29 Other chronic pain; M19.90 Unspecified osteoarthritis, unspecified site; Z99.81 Dependence on supplemental oxygen; Z85.3 Personal history of malignant neoplasm of breast; Z90.710 Acquired absence of both cervix and uterus; Z82.49 Family history of ischemic heart disease and other diseases of the circulatory system; Z88.0 Allergy status to penicillin; Z79.899 Other long term (current) drug therapy; Z86.711 Personal history of pulmonary embolism; Z85.05 Personal history of malignant neoplasm of liver; Z85.118 Personal history of other malignant neoplasm of bronchus and lung; Z85.830 Personal history of malignant neoplasm of bone
CPT/HCPCS: 36415; 71045; 78452; 80048; 82550; 82553; 82962; 83880; 84436; 84439; 84443; 84484; 85025; 85610; 85730; 87116; 93005; 93010; 93017; 94760; 96372; 96374; 99282; 99285; G0378; A9502; J1650; J1815; J2405; J2785; J3010

== ENCOUNTER 2019-06-01 20:16 | Emergency (ER) | payer MEDICARE ==
[2019-06-01] MEDS ORDERED: IPRATROPIUM 0.02% NEBU 2.5 ML IH ONE (21:33)
[2019-06-01] MEDS ORDERED: ALBUTEROL 2.5 MG/3 ML NEBU IH ONE ×2 (21:33→23:24)
[2019-06-01] MEDS ORDERED: predniSONE 20 MG TAB PO ONE (21:34)
--- NOTE | 2019-06-01 21:40 | Emergency Department Report ---
<JAVI MADERA - Last Filed: 06/01/19 23:17> ED Shortness of Breath HPI - General Chief Complaint: Dyspnea/Respdistress Stated Complaint: ASHLEY Time Seen by Provider: 06/01/19 21:29 Source: patient, EMS Mode of arrival: Ambulatory Limitations: No Limitations - History of Present Illness Initial Comments: 73-year-old female presents to the emergency room for shortness of breath and cough. Patient states that she was seen and admitted to [facility] around 05/13/2019 for pneumonia. Patient states that she was discharged and end up going to [facility] on 05/18/2019 and was discharged yesterday on 05/31/2019 with a diagnosis of hypertension and tachycardic. Patient states that she was treated for pneumonia a [facility] but no one treated her for pneumonia at [facility]. Patient reports that she is homeless and was sent to a new home but does not like to [facility] at all. Patient reports that she has not been using her inhalers. Patient does have a complicated past medical history of arthritis, COPD, diabetes, GERD, less cancer with metastases to the breasts liver or lung and bones. Patient also has a history of pulmonary embolism thyroid disease and chronic pain. Patient's had surgical right mastectomy in 2003 cancer with hysterectomy right foot surgery. MD Complaint: shortness of breath, cough - Related Data Home Medications Medication Instructions Recorded Confirmed Last Taken Buspirone HCl [busPIRone] 15 mg PO TID 09/16/14 08/23/18 08/22/18 Levothyroxine [Synthroid] 100 mcg PO DAILY 09/16/14 08/23/18 08/22/18 Tizanidine HCl 4 mg PO Q8H PRN 02/20/16 08/23/18 08/22/18 Gabapentin [Neurontin] 600 mg PO TID 08/18/18 08/23/18 08/22/18 Metformin HCl [Glucophage] 1,000 mg PO BIDWM 08/18/18 08/23/18 08/22/18 Oxybutynin Xl [Ditropan Xl] 5 mg PO QDAY 08/18/18 08/23/18 1 Day Ago ~08/22/18 Venlafaxine Xr [Effexor XR] 225 mg PO QDAY 08/18/18 08/23/18 08/22/18 Capecitabine [Xeloda] 1,500 mg PO BID 08/23/18 08/23/18 08/23/18 07:30 LORazepam [Ativan] 1 mg PO BID PRN 08/23/18 08/23/18 08/22/18 Morphine Sulfate 30 mg PO Q4H 08/23/18 08/23/18 08/22/18 hydroCHLOROthiazide [HCTZ] 25 mg PO QDAY 08/23/18 08/23/18 08/22/18 Rivaroxaban [Xarelto] 20 mg PO QDAY 08/26/18 08/26/18 Unknown Previous Rx's Medication Instructions Recorded Last Taken Type Meclizine HCl [Meclizine CHEW] 25 mg PO Q8HR PRN #15 tab.chew 09/16/18 Unknown Rx Prednisone [predniSONE 5 mg (6-Day 5 mg PO .TAPER #1 tab.ds.pk 06/02/19 Unknown Rx Pack, 21 Tabs)] Allergies Allergy/AdvReac Type Severity Reaction Status Date / Time Penicillins Allergy Hives Verified 09/16/14 21:38 pregabalin [From Lyrica] Allergy Itching Verified 09/16/14 21:39 MOLD/MILDEW Allergy Swelling Uncoded 10/10/14 13:09 ED Review of Systems Comment: All other systems reviewed and negative ED Past Medical Hx - Past Medical History Hx Diabetes: Yes Hx Pulmonary Embolism: Yes Hx GERD: Yes Hx Liver Disease: Yes (breast CA with metastases to breast CA with mets to liver, lung and bones) Hx Arthritis: Yes Hx COPD: Yes Additional medical history: Thryroid disease. Chronic pain - Surgical History Hx Breast Surgery: Yes (R mastectomy 2004, cancer) Additional Surgical History: Hysterectomy, Right foot surgery - Social History Smoking Status: Never Smoker Substance Use Type: None - Medications Home Medications: Home Medications Medication Instructions Recorded Confirmed Last Taken Type Buspirone HCl [busPIRone] 15 mg PO TID 09/16/14 08/23/18 08/22/18 History Levothyroxine [Synthroid] 100 mcg PO DAILY 09/16/14 08/23/18 08/22/18 History Tizanidine HCl 4 mg PO Q8H PRN 02/20/16 08/23/18 08/22/18 History Gabapentin [Neurontin] 600 mg PO TID 08/18/18 08/23/18 08/22/18 History Metformin HCl [Glucophage] 1,000 mg PO BIDWM 08/18/18 08/23/18 08/22/18 History Oxybutynin Xl [Ditropan Xl] 5 mg PO QDAY 08/18/18 08/23/18 1 Day Ago History ~08/22/18 Venlafaxine Xr [Effexor XR] 225 mg PO QDAY 08/18/18 08/23/18 08/22/18 History Capecitabine [Xeloda] 1,500 mg PO BID 08/23/18 08/23/18 08/23/18 07:30 History LORazepam [Ativan] 1 mg PO BID PRN 08/23/18 08/23/18 08/22/18 History Morphine Sulfate 30 mg PO Q4H 08/23/18 08/23/18 08/22/18 History hydroCHLOROthiazide [HCTZ] 25 mg PO QDAY 08/23/18 08/23/18 08/22/18 History Rivaroxaban [Xarelto] 20 mg PO QDAY 08/26/18 08/26/18 Unknown History Meclizine HCl [Meclizine CHEW] 25 mg PO Q8HR PRN #15 tab.chew 09/16/18 Unknown Rx Prednisone [predniSONE 5 mg (6-Day 5 mg PO .TAPER #1 tab.ds.pk 06/02/19 Unknown Rx Pack, 21 Tabs)] ED Physical Exam - General Limitations: No Limitations General appearance: alert, in no apparent distress - Head Head exam: Present: atraumatic, normocephalic - Eye Eye exam: Present: normal appearance - ENT ENT exam: Present: normal orophraynx, mucous membranes moist - Neck Neck exam: Present: normal inspection, full ROM - Respiratory Respiratory exam: Present: rhonchi - Cardiovascular Cardiovascular Exam: Present: tachycardia - GI/Abdominal GI/Abdominal exam: Present: soft, normal bowel sounds - Back Exam Back exam: Present: normal inspection - Neurological Exam Neurological exam: Present: alert, oriented X3 - Psychiatric Psychiatric exam: Present: normal affect, normal mood - Skin Skin exam: Present: warm, dry, intact, normal color. Absent: rash ED Medical Decision Making - Radiology Data Radiology results: report reviewed Patient: KAMILA RACHEL MR#: [id number] 2 : 1945 Acct:[id number] Age/Sex: 73 / F ADM Date: 06/01/19 Loc: ED Attending Dr: Ordering Physician: TAVO WALTON Date of Service: 06/01/19 Procedure(s): XR chest routine 2V Accession Number(s): [id number] cc: TAVO WALTON Fluoro Time In Minutes: CHEST 2 VIEWS INDICATION / CLINICAL INFORMATION: sob, cough and rales. COMPARISON: 08/23/18 FINDINGS: SUPPORT DEVICES: Right Port-A-Cath is present with the tip projecting over the superior vena cava in expected position. HEART / MEDIASTINUM: Stable. LUNGS / PLEURA: No acute airspace disease. Interval development of small right pleural effusion. No pneumothorax. ADDITIONAL FINDINGS: No significant additional findings. IMPRESSION: 1. Small right pleural effusion. Signer Name: Tim Arevalo MD Signed: 06/01/2019 9:54 PM Workstation Name: [id number] Transcribed By: DT Dictated By: Jackson Arevalo MD Electronically Authenticated By: Jackson Arevalo MD Signed Date/Time: 06/01/192153 DD/ 52 TD/TT: - Medical Decision Making 73-year-old female presents to the emergency room for shortness of breath and cough. Patient states that she was seen and admitted to [facility] around 05/13/2019 for pneumonia. Patient states that she was discharged and end up going back to [facility] on 05/18/2019 and was discharged yesterday on 05/31/19 with a diagnosis of hypertension and tachycardic. Patient states that she was treated for pneumonia a [facility] but no one treated her for pneumonia at [facility]. Patient reports that she is homeless and was sent to a new home but does not like to [facility] at all. Patient reports that she has not been using her inhalers. Patient does have a complicated past medical history of arthritis, COPD, diabetes, GERD, less cancer with metastases to the breasts liver or lung and bones. Patient also has a history of pulmonary embolism thyroid disease and chronic pain. Patient's had surgical right mastectomy in 2003 cancer with hysterectomy right foot surgery. Was given DuoNeb and prednisone chest x-ray. Dr. Foote irritant and came to evaluate patient. Patient to be discharged home on a prednisone taper and to follow-up with her lung specialist and primary care. ED Disposition Clinical Impression: COPD (chronic obstructive pulmonary disease) Qualifiers: COPD type: unspecified COPD Qualified Code(s): J44.9 - Chronic obstructive pulmonary disease, unspecified Disposition: - TO HOME OR SELFCARE Is pt being admited?: No Does the pt Need Aspirin: No Condition: Stable Instructions: Chronic Obstructive Pulmonary Disease (ED) Additional Instructions: Follow up with your lung specialist and your primary care provider in the next 5-7 days. Continue with all chronic medications as prescribed. Please prednisone medication as prescribed by [facility] emergency room. Prescriptions: Prednisone [predniSONE 5 mg (6-Day Pack, 21 Tabs)] 5 mg PO .TAPER #1 tab.ds.pk Referrals: PRIMARY CARE, [Primary Care Provider] - 3-5 Days <ROSA FLORIAN III - Last Filed: 06/02/19 02:27> ED Review of Systems ROS: Stated complaint: ASHLEY Other details as noted in HPI ED Course Vital Signs 06/01/19 06/01/19 06/01/19 20:43 21:30 22:08 Temperature 98.1 F Pulse Rate 84 125 H Pulse Rate [ 110 H Anterior Bilateral Throughout] Respiratory 18 12 Rate Respiratory 20 Rate [Anterior Bilateral Throughout] Blood Pressure 122/80 143/93 [Right] O2 Sat by Pulse 98 96 Oximetry - Reevaluation(s) Reevaluation #1: I examined patient. Patient's lung sounds are clear. Patient has no acute distress. Patient's oxygen is at 98-99% on 2 L of oxygen. Patient is normally on 3 L. Patient will be discharged. Patient will be given a prednisone taper. Patient states she only came in just for a place to stay. Patient states that she doesn't like where she is currently living. Patient states she does not feel unsafe but just does not like it. I discussed with patient that the patient can stay in the ER and wait for a child protective services social worker consult. Patient given discharge instructions. I discussed all results the patient. Patient is stable for discharge. Patient voiced understanding of discharge instructions. 06/02/19 01:25 Critical care attestation.: If time is entered above; I have spent that time in minutes in the direct care of this critically ill patient, excluding procedure time. ED Disposition Is pt being admited?: No Does the pt Need Aspirin: No Time of Disposition: 02:27
--- NOTE | 2019-06-01 21:59 | XRay Report ---
CHEST 2 VIEWS INDICATION / CLINICAL INFORMATION: sob, cough and rales. COMPARISON: 08/23/18 FINDINGS: SUPPORT DEVICES: Right Port-A-Cath is present with the tip projecting over the superior vena cava in expected position. HEART / MEDIASTINUM: Stable. LUNGS / PLEURA: No acute airspace disease. Interval development of small right pleural effusion. No p neumothorax. ADDITIONAL FINDINGS: No significant additional findings. IMPRESSION: 1. Small right pleural effusion. Signer Name: Tim Arevalo MD Signed: 06/01/2019 9:54 PM Workstation Name: [id number]
[2019-06-02] MEDS ORDERED: ONDANSETRON 4 MG ODT TAB ONE (03:02)
[2019-06-02] MEDS ORDERED: ONDANSETRON 4 MG ODT TAB PO ONE (03:04)
[2019-06-02 08:23] VITALS: BP 148/81
== END 2019-06-02 13:17 | disposition home or self-care (01) ==
LOC: ED 20:16
DX: J44.9 Chronic obstructive pulmonary disease, unspecified (principal); E11.9 Type 2 diabetes mellitus without complications; K21.9 Gastro-esophageal reflux disease without esophagitis; K76.9 Liver disease, unspecified; Z90.710 Acquired absence of both cervix and uterus; Z98.890 Other specified postprocedural states; Z79.899 Other long term (current) drug therapy; Z88.0 Allergy status to penicillin; Z88.8 Allergy status to other drugs, medicaments and biological substances
CPT/HCPCS: 71046; 94640; 99284; J7512; 94644; Q0162